=== PATIENT | female | born 1970 | race Caucasian/White ===

== ENCOUNTER 2020-01-28 17:34 | Emergency (ER) | payer SELFPAY ==
[2020-01-28 17:39] VITALS: BP 130/73; PULSE 92; RESP 18; TEMP 36.8; O2SAT 97; BMI 17.4
--- NOTE | 2020-01-28 17:46 | W.ED.EXTPRO ---
HPI - Extremity Problem General: Chief complaint: Extremity Problem,Nontraumatic Stated complaint: R SHOULDER SWELLING Time Seen by Provider: 01/28/20 17:46 History of Present Illness: HPI Narrative: Patient is a 49-year-old female comes to the ED with right shoulder pain and swelling. Symptoms started approximately 2 weeks ago after she with helping her sister hanging drywall. She said she was having some swelling in her right shoulder and pain with range of motion. She has been placing ice on her right shoulder and has helped with some of the swelling. She denies any traumatic injury or accident to cause pain. Patient thinks that she overworked her shoulder that day hanging the drywall. Associated symptoms: Deny chest pain, fever(s) or rash Review of Systems Const: Denies: fever(s), chills or fatigue Eyes: Denies: change in vision or eye discomfort ENMT: Denies: throat pain, odynophagia, nasal discharge or nasal congestion Card: Denies: chest pain, palpitations, edema, swelling of feet/ankles, dyspnea on exertion or orthopnea Resp: Denies: dyspnea, productive cough or non-productive cough GI: Denies: abdominal pain, nausea, vomiting, diarrhea, constipation or hematochezia : Denies: flank pain, dysuria or hematuria Musc: Reports: extremity pain (right shoulder) and joint swelling (right shoulder); Denies: neck pain, back pain or extremity swelling Skin/Breast: Denies: rash or new lesions Neuro: Denies: headache(s), numbness in extremities or weakness in extremities Physical Exam Const: COMMON NORMALS: no acute distress, patient oriented x3, healthy appearing and alert GENERAL APPEARANCE: cooperative and comfortable HENMT: COMMON NORMALS: normocephalic HEAD & SCALP: normocephalic MOUTH: Normal oral and palatal mucosa present THROAT: posterior oropharynx normal and uvula midline Neck/C-Spine: COMMON NORMALS: supple GENERAL: Yes normal visual inspection Resp: COMMON NORMALS: normal respiratory effort, No retractions, No use of accessory muscles and clear to auscultation bilaterally AUSCULTATION: clear to auscultation bilaterally Cardio: COMMON NORMALS: regular rate, regular rhythm, S1 normal heart sound present, S2 normal heart sound present, No gallops present (Cardio), No clicks present (Cardio), No murmurs present (Cardio) and Peripheral pulses 2+ throughout RATE: regular rate RHYTHM: regular rhythm HEART SOUNDS: S1 normal heart sound present and S2 normal heart sound present PERIPHERAL PULSES: Peripheral pulses 2+ throughout GI: COMMON NORMALS: Normal to inspection, nondistended, normoactive bowel sounds present, Soft to palpation, non-tender and no masses PALPATION: Yes Soft to palpation : COMMON NORMALS: Yes no CVA tenderness BLADDER/KIDNEY EXAM: Yes no CVA tenderness Back/Pelvis: COMMON NORMALS: no CVA tenderness Extremity: LEFT UPPER EXTREMITY: Yes shoulder joint Left shoulder joint: Yes inspection (Patient had a localized spot of swelling on the anterior aspect of right shoulder. It appeared to be bursitis. Shoulder had no erythema or warmth upon palpation. Fluid-filled pocket palpable.), Yes palpation (Fluid-filled pocket on anterior aspect of right shoulder. Appears to be bursitis.), Yes ROM (Full range of motion but does elicit pain.) and Yes neurovascular exam (Intact?2+ radial pulse, sensation to hand intact strength the hand is intact.) Neuro: COMMON NORMALS: patient oriented x3 and moves all extremities SENSORIUM/ORIENTATION: Yes alert Skin: COMMON NORMALS: no rashes or lesions noted GENERAL SKIN EXAM: no rashes or lesions noted and dry skin Course Vital Signs: Vital signs: Vital Signs Temperature 98.3 F 01/28/20 17:39 Pulse Rate 66 01/28/20 18:38 Respiratory Rate 16 01/28/20 18:38 Blood Pressure 111/72 01/28/20 18:38 Pulse Oximetry 98 01/28/20 18:38 MDM - Extremity (Nontraumatic) MDM Narrative: Medical decision making narrative: Patient is a 49-year-old female comes to the ED with nontraumatic right shoulder pain and swelling. Upon examination patient had bursitis in right shoulder. No warmth or erythema in the right shoulder. Patient had full range of motion with some pain. No signs of joint infection seen. Patient was given a dose of Toradol while here in the unit. She was sent home with a prescription for ibuprofen and methocarbamol. She was also given a right shoulder sling and told to wear for the next several days, but to remove arm daily and do some exercises and range of motion to prevent shoulder freezing. Ice and/or heat to shoulder. Follow-up with PCP in 7 to 10 days. Return to ED precautions given. Patient understood agree with plan. Discharge Plan Discharge Patient Disposition: Home Clinical Impression: Acute bursitis of right shoulder Condition: Stable Prescriptions: New ibuprofen 800 mg tablet 800 mg PO Q8H PRN (Reason: pain) Qty: 30 RF: 0 Robaxin-750 750 mg tablet 750 mg PO Q8H Qty: 30 RF: 0 Discharge Orders: Discharge Order (Routine); Ordered 01/28/20 Ordered By: Michael Vang Discharge Diet: Regular Discharge Activity: Increase activity as tolerated Patient Instructions: Bursitis - Shoulder Activity Restrictions/Additional Instructions: Follow-up with medical provider as directed in 7-10 days. Take medications as prescribed. Robaxin is a muscle relaxer and can cause some drowsiness, so take at night before bed. Wear sling for the next several days to rest shoulder, but daily remove arm from swing and do some range of motion exercises to prevent shoulder freezing up. Apply ice and/or heat on right shoulder to help with symptoms as well. Return to the ER or your medical provider if condition worsens. Please read and understand discharge instructions. If any questions, please ask. Discharge Date/Time: 01/28/20 18:43 Coding Level of Care Code ED [employer] for Nichole [facility] Exam Comprehensive
[2020-01-28 17:55] VITALS: BP 111/69; PULSE 82; RESP 16; O2SAT 98
[2020-01-28] MEDS: ketorolac 60 mg/2 mL INJ IM (18:24)
[2020-01-28 18:38] VITALS: BP 111/72; PULSE 66; RESP 16; O2SAT 98
== END 2020-01-28 18:43 | disposition home or self-care (01) ==
PROVIDERS: Emergency Provider Physician Assistant
DX: M75.51 Bursitis of right shoulder (principal)
CPT/HCPCS: 12345; 96372; 99281; 99282; J1885